=== PATIENT | female | born 1975 | race Caucasian/White ===

== ENCOUNTER 2022-03-26 11:04 | Day surgery (SDC) | payer OTHER ==
[2022-03-26 11:09] VITALS: BMI 29.2
[2022-03-26 11:36] VITALS: TEMP 98.2
[2022-03-26 13:35] VITALS: BP 117/79; PULSE 70; RESP 13
== END 2022-03-26 13:32 | disposition home or self-care (01) ==
LOC: JASU-ENDO 11:04
PROVIDERS: ATTEND Internal Medicine Gastroenterology
PROC: 0DB78ZX Excision of Stomach, Pylorus, Via Natural or Artificial Opening Endoscopic, Diagnostic (ICD-10-PCS; 2022-03-26)
PROC: 0DB68ZX Excision of Stomach, Via Natural or Artificial Opening Endoscopic, Diagnostic (ICD-10-PCS; principal; 2022-03-26 11:30)
DX: K29.50 Unspecified chronic gastritis without bleeding (principal); B96.81 Helicobacter pylori [H. pylori] as the cause of diseases classified elsewhere
CPT/HCPCS: 81025; 88305-TC; 88341-TC; 88342-TC

== ENCOUNTER 2022-07-13 21:14 | Emergency (ER) | payer OTHER ==
[2022-07-13 21:20] VITALS: BP 139/93; PULSE 92; RESP 18; TEMP 97.7; BMI 25.7
[2022-07-13] MEDS ORDERED: predniSONE 20 MG TABLET (UD) PO ONE (21:53)
[2022-07-13] MEDS ORDERED: diphenhydrAMINE HCL 25 MG CAPSULE (FP) PO ONE ×2 (21:54→21:56)
[2022-07-13] MEDS ORDERED: FAMOTIDINE 20 MG TABLET PO ONE (21:54)
[2022-07-13] MEDS ORDERED: predniSONE 20 MG TABLET (UD) ONE (21:56)
[2022-07-13] MEDS ORDERED: FAMOTIDINE 20 MG TABLET ONE (21:56)
== END 2022-07-13 22:30 | disposition home or self-care (01) ==
LOC: JER 21:14 → JERFT 21:14
DX: L50.0 Allergic urticaria (principal)
CPT/HCPCS: 99283-25